=== PATIENT | female | born 1960 | race Caucasian/White ===

== ENCOUNTER 2023-04-27 11:45 | Day surgery (SDC) | payer OTHER, SELFPAY ==
[2023-04-27] MEDS: TETRACAINE 0.5% OPHTH 1 DROP EYE-RIGHT ×2 (11:53→12:00)
[2023-04-27] MEDS: KETOROLAC OPHTH 0.5% 1 DROP EYE-RIGHT ×3 (11:57→12:06)
[2023-04-27] MEDS: SODIUM CHLORIDE 0.9 % (FLUSH) 10 ML SYRINGE IVF (12:15)
[2023-04-27 12:23] VITALS: BP 143/88; PULSE 94; RESP 16; TEMP 36.6; O2SAT 98; BMI 22.4
--- NOTE | 2023-04-27 12:33 | W.ANESCHARGE ---
Anesthesia Charges Start Date/Time Anesthesia Start Date: 04/27/23 Anesthesia Start Time: 12:40 Stop Date/Time Anesthesia Stop Date: 04/27/23 Anesthesia Stop Time: 13:32
[2023-04-27] MEDS: TETRACAINE 0.5% OPHTH 2 DROP EYE-RIGHT (12:44)
[2023-04-27] MEDS: TRYPAN BLUE 0.5 ML SYRINGE EYE-RIGHT (12:49)
[2023-04-27] MEDS: BALANCED SALT IRRIG SOLN 15 ML EYE-RIGHT (12:49)
--- NOTE | 2023-04-27 12:53 | W.ANESCHARGE ---
Anesthesia Charges Start Date/Time Anesthesia Start Date: 04/27/23 Anesthesia Start Time: 12:40 Stop Date/Time Anesthesia Stop Date: 04/27/23 Anesthesia Stop Time: 13:32
[2023-04-27 13:32] VITALS: BP 135/64; PULSE 89; RESP 16; TEMP 36.6; O2SAT 98
--- NOTE | 2023-04-27 13:38 | P.OPTPRC_ITS ---
Procedure Note Date of procedure: 04/27/[address] [facility] bill your pro fee for this procedure?: Yes Procedure Description: SURGEON: Catherine Giraldo MD PREOPERATIVE DIAGNOSIS: 1. Mature cataract, right eye. 2. Miosis, right eye. POSTOPERATIVE DIAGNOSIS: 1. Mature cataract, right eye. 2. Miosis, right eye. NAME OF OPERATION: Phacoemulsification of cataract with posterior chamber intraocular lens implantation in the right eye with pupilloplasty and trypan. ANESTHESIA: Topical. ESTIMATED BLOOD LOSS: Less than 2 cc. COMPLICATIONS: None. PATHOLOGY SPECIMEN: None. INDICATIONS: See consult note for details. The risks, benefits and alternatives of the procedure were explained to the patient, who elected to proceed and signed informed consent to do so. PROCEDURE: The patient was brought to the pre-holding area where the right eye was identified as the operative eye. I placed my initials above this eye. The patient received eye drops consisting of 0.5% tetracaine, 1% tropicamide, 10% phenylephrine, and 0.5% ketorolac. The patient was then brought to the operating room where the right eye was again identified as the operative eye. The eye was prepped with Betadine and draped in the usual sterile ophthalmic fashion. A #15 super-sharp blade was used to create a paracentesis site. 1% non-preserved intracameral lidocaine was injected into the anterior chamber. An air bubble was injected into the anterior chamber. Trypan blue was injected posterior to the air bubble in order to stain the anterior capsule. Balanced salt solution was used to irrigate the anterior chamber. Endocoat was injected into the anterior chamber. A 2.4 mm keratome was used to create a three-plane self-sealing incision 1 mm anterior to the temporal limbus. A #15 super-sharp blade was used to create four additional paracentesis sites. Four Grieshaber iris hooks were placed in order to stretch the iris. A cystotome was used to create an anterior capsular leaflet. The Utrata forceps were used to extend this to form a continuous curvilinear capsulorrhexis. Hydrodissection was performed. The cataract was removed with phacoemulsification using the [id number] technique. The irrigation and aspiration tip was used to remove the remaining cortex. Healon was injected into the capsular bag. An NEENA ZCB00 intraocular lens of 21.5 diopters was injected into the capsular bag. The four Grieshaber iris hooks were removed. The irrigation and aspiration tip was used to remove the remaining viscoelastic. Miostat was injected into the anterior chamber. Balanced salt solution on a cannula was used to hydrate the wound, and the wound was found to be watertight. The pupil was noted to be round. DISPOSITION: The patient was taken to the recovery room and discharged to home in stable condition. The patient was instructed to call me or go to the emergency department with any sudden change, including dramatic loss of vision, severe pain in the eye or eyebrow region, nausea, or vomiting. The patient will follow up in the clinic tomorrow morning.
== END 2023-04-27 13:48 | disposition home or self-care (01) ==
PROVIDERS: PCP Surgery; Visit Provider Ophthalmology
PROC: (CPT 66982; principal; 2023-04-27 12:00)
DX: H25.89 Other age-related cataract (principal); H57.03 Miosis
CPT/HCPCS: 66982; 00142; 82962; A9270; J2250; J2405; J3010; V2632

== ENCOUNTER 2023-05-11 09:40 | Day surgery (SDC) | payer OTHER, SELFPAY ==
[2023-05-11] MEDS: TETRACAINE 0.5% OPHTH 1 DROP EYE-LEFT ×2 (09:45→09:50)
[2023-05-11] MEDS: KETOROLAC OPHTH 0.5% 1 DROP EYE-LEFT ×3 (09:45→09:55)
[2023-05-11 09:57] VITALS: BMI 22.5
[2023-05-11 10:17] VITALS: BP 152/72; PULSE 95; RESP 16; TEMP 36.6; O2SAT 98
[2023-05-11] MEDS: SODIUM CHLORIDE 0.9 % (FLUSH) 10 ML SYRINGE IVF (10:21)
--- NOTE | 2023-05-11 10:25 | SUR.PREOP ---
The eye drops brought by the patient (Ketorolac and Prednisolone) are examined and I have determined they are labeled by the patient's pharmacy for this patient as prescribed by the surgeon. The bottles are intact, recently obtained and appear to be correct.syd
[2023-05-11] MEDS: TETRACAINE 0.5% OPHTH 2 DROP EYE-LEFT (10:35)
[2023-05-11] MEDS: TRYPAN BLUE 0.5 ML SYRINGE EYE-LEFT (10:40)
[2023-05-11] MEDS: BALANCED SALT IRRIG SOLN 15 ML EYE-LEFT (10:40)
[2023-05-11 11:16] VITALS: PULSE 89; RESP 16; TEMP 36.3; O2SAT 97
--- NOTE | 2023-05-11 11:18 | W.ANESCHARGE ---
Anesthesia Charges Start Date/Time Anesthesia Start Date: 05/11/23 Anesthesia Start Time: 10:31 Stop Date/Time Anesthesia Stop Date: 05/11/23 Anesthesia Stop Time: 11:20
--- NOTE | 2023-05-11 11:20 | W.ANESCHARGE ---
Anesthesia Charges Start Date/Time Anesthesia Start Date: 05/11/23 Anesthesia Start Time: 10:31 Stop Date/Time Anesthesia Stop Date: 05/11/23 Anesthesia Stop Time: 11:20
--- NOTE | 2023-05-11 13:15 | W.PM.OPTPROC ---
Procedure Note Date of procedure: 05/11/23 Will [facility] bill your pro fee for this procedure?: Yes Procedure: SURGEON: Catherine Giraldo MD PREOPERATIVE DIAGNOSIS: 1. Mature cataract, left eye. 2. Miosis, left eye. POSTOPERATIVE DIAGNOSIS: 1. Mature cataract, left eye. 2. Miosis, left eye. NAME OF OPERATION: Phacoemulsification of cataract with posterior chamber intraocular lens implantation in the left eye with pupilloplasty and trypan blue. ANESTHESIA: Topical. ESTIMATED BLOOD LOSS: Less than 2 cc. COMPLICATIONS: None. PATHOLOGY SPECIMEN: None. INDICATIONS: See consult note for details. The risks, benefits and alternatives of the procedure were explained to the patient, who elected to proceed and signed informed consent to do so. PROCEDURE: The patient was brought to the pre-holding area where the left eye was identified as the operative eye. I placed my initials above this eye. The patient received eye drops consisting of 0.5% tetracaine, 1% tropicamide, 10% phenylephrine, and 0.5% ketorolac. The patient was then brought to the operating room where the left eye was again identified as the operative eye. The eye was prepped with Betadine and draped in the usual sterile ophthalmic fashion. A #15 super-sharp blade was used to create a paracentesis site. 1% non-preserved intracameral lidocaine was injected into the anterior chamber. An air bubble was injected into the anterior chamber. Trypan was injected posterior to the air bubble in order to stain the anterior capsule. Balanced salt solution was used to irrigate the anterior chamber. Endocoat was injected into the anterior chamber. A 2.4 mm keratome was used to create a three-plane self-sealing incision 1 mm anterior to the temporal limbus. A #15 super-sharp blade was used to create four additional paracentesis sites. Four Grieshaber iris hooks were placed in order to stretch the iris. A cystotome was used to create an anterior capsular leaflet. The Utrata forceps were used to extend this to form a continuous curvilinear capsulorrhexis. Hydrodissection was performed. The cataract was removed with phacoemulsification using the [id number] technique. The irrigation and aspiration tip was used to remove the remaining cortex. Healon was injected into the capsular bag. An NEENA ZCB00 intraocular lens of 21.5 diopters was injected into the capsular bag. The four Grieshaber iris hooks were removed. The irrigation and aspiration tip was used to remove the remaining viscoelastic. Miostat was injected into the anterior chamber. Balanced salt solution on a cannula was used to hydrate the wound, and the wound was found to be watertight. The pupil was noted to be round. DISPOSITION: The patient was taken to the recovery room and discharged to home in stable condition. The patient was instructed to call me or go to the emergency department with any sudden change, including dramatic loss of vision, severe pain in the eye or eyebrow region, nausea, or vomiting. The patient will follow up in the clinic tomorrow morning.
== END 2023-05-11 11:47 | disposition home or self-care (01) ==
PROVIDERS: PCP Surgery; Visit Provider Ophthalmology
PROC: (CPT 66982; principal; 2023-05-11 09:45)
DX: H25.89 Other age-related cataract (principal); H57.03 Miosis
CPT/HCPCS: 66982; 142; 82962; A9270; J2250; J2405; J3010; V2632

== ENCOUNTER 2023-11-24 10:30 | Outpatient (RCR) | payer OTHER, SELFPAY | END 2024-03-23 23:59 | disposition home or self-care (01) | PROVIDERS: PCP Surgery; Visit Provider Surgery | DX: M79.605 Pain in left leg (principal); M54.2 Cervicalgia; G89.29 Other chronic pain; M54.89 Other dorsalgia; M25.572 Pain in left ankle and joints of left foot; M79.672 Pain in left foot; M62.81 Muscle weakness (generalized); R26.2 Difficulty in walking, not elsewhere classified; Z51.89 Encounter for other specified aftercare | CPT/HCPCS: 97110; 97112; 97140; 97163; 97530 ==

== ENCOUNTER 2024-10-26 10:07 | Outpatient (CLI) | payer MEDICARE, BC, SELFPAY | END 2024-10-26 10:08 | disposition home or self-care (01) | LOC: AMB 10-29 09:48 | PROVIDERS: PCP Surgery; Visit Provider Family Medicine | DX: R53.1 Weakness (principal); R42 Dizziness and giddiness | CPT/HCPCS: A0425; A0427 ==

== ENCOUNTER 2024-10-26 11:42 | Emergency (ER) | payer MEDICARE, BC, SELFPAY ==
[2024-10-26 11:53] VITALS: BP 154/72; PULSE 86; RESP 18; TEMP 36.8; O2SAT 99; BMI 23.6
--- NOTE | 2024-10-26 11:54 | ED.GENADULT ---
HPI - General Adult General Chief complaint: Dizziness/Vertigo Stated complaint: dizziness Time Seen by Provider: 10/26/24 11:54 History of Present Illness HPI narrative: Patient reports lightheadedness and dizziness causing her to be unable to care for her special needs son. She was given Zofran and 500NS from EMS and reports nausea has improved. Still feels dizzy especially with side to side head movements. 64-year-old woman presenting to the emergency department with concern of NS. She admits that this has been going on off for years but woke with more intense symptoms this morning. She had fallen asleep in recliner so that she could be more able to hear her special needs son. Having woken earlier initially in the night she had then overslept. She found herself due to the dizziness unable to get out of the chair. Ultimately called for EMS as she could not get up off the floor. She did not fall or hit her head. She describes a sensation of imbalance and kind of a disconnection from reality somehow. Has not noted any fever otherwise or unwell lately. Not complaining of headache. No neck pain. Denies diplopia. Dizziness only associated with movement Treats diabetes with insulin Nicotine dependence Related Data Home Medications ?Medication ?Instructions ?Recorded ?Confirmed atorvastatin 20 mg tablet 20 mg PO QPM 04/26/23 10/26/24 gabapentin 600 mg tablet 600 mg PO BID 04/26/23 10/26/24 insulin glargine 100 unit/mL (3 10 unit subcut QPM 04/26/23 10/26/24 mL) subcutaneous pen (Basaglar KwikPen U-100 Insulin) lisinopril 10 mg tablet 10 mg PO DAILY 04/26/23 10/26/24 metformin 500 mg tablet,extended mg PO 04/26/23 release 24 hr terbinafine HCl 250 mg tablet 250 mg PO DAILY 04/26/23 05/11/23 Previous Rx's ?Medication ?Instructions ?Recorded diazepam 5 mg tablet (Valium) 5 mg PO TID PRN dizziness #6 tabs 10/26/24 meclizine 25 mg tablet 25 mg PO TID PRN dizziness #30 tabs 10/26/24 Allergies Allergy/AdvReac Type Severity Reaction Status Date / Time Penicillins Allergy Hives Verified 05/11/23 07:33 glimepiride AdvReac Vomiting Verified 05/11/23 07:33 Review of Systems Status of ROS: Reports: 6 or more systems reviewed and unremarkable except as noted in History and [facility] Type 2 diabetes mellitus ?E11.9 - Type 2 diabetes mellitus without complications (ICD-10) Social History Smoking Status: Current every day smoker What tobacco products do you use: cigarettes How often do you have a drink containing alcohol: monthly or less Alcohol type: beer How many standard drinks containing alcohol do you have on a typical day: 1 or 2 How often do you have six or more drinks on one occasion: Never AUDIT-C Alcohol total score: 1 Non-prescribed substance use: denies use Caffeine: Yes Are you using contraception or practicing any form of control: No Exam Narrative: Exam Narrative: Pleasant. NAD. Little hard of hearing. Cranial nerves 2-12 intact. Does have little left beating nystagmus more so than the right. Symptoms are significantly exacerbated when rotating head to the left versus the right or going to seated position. Head impulse testing actually had momentary positive with rotation to the right; I would say inconclusive. Going to sit her up however resulted in significant reproduction of symptoms. Heart in regular rate and rhythm. Breathing easily. Lungs are clear. No focal weaknesses and moving all extremities without difficulty. Lower extremities are without edema. She is well-perfused. Const: Vital Signs, click to edit/add: Vital Signs - 24 hr 10/26/24 11:53 Temperature 98.3 F Pulse Rate [Pulse Oximeter] 86 Respiratory Rate 18 Blood Pressure [Ri ght Upper Arm] 154/72 H Pulse Oximetry 99 Oxygen Delivery Me thod Room Air Documenting provider has reviewed patient's vital signs: yes Course Vital Signs Vital signs: Initial Vital Signs Temperature 98.3 F 10/26/24 11:53 Temperature Source Temporal Artery Scan 10/26/24 11:53 Pulse Rate 86 10/26/24 11:53 Respiratory Rate 18 10/26/24 11:53 Blood Pressure 154/72 H 10/26/24 11:53 Blood Pressure Mean 99 10/26/24 11:53 Pulse Oximetry 99 10/26/24 11:53 Oxygen Delivery Method Room Air 10/26/24 11:53 Vital Signs Temperature 98.3 F 10/26/24 11:53 Pulse Rate 86 10/26/24 11:53 Respiratory Rate 18 10/26/24 11:53 Blood Pressure 154/72 H 10/26/24 11:53 Pulse Oximetry 99 10/26/24 11:53 Oxygen Delivery Method Room Air 10/26/24 11:53 Temperature 98.3 F 10/26/24 11:53 Pulse Rate 86 10/26/24 11:53 Respiratory Rate 18 10/26/24 11:53 Blood Pressure 154/72 H 10/26/24 11:53 Pulse Oximetry 99 10/26/24 11:53 Oxygen Delivery Method Room Air 10/26/24 11:53 Medications Administered Medications: Discontinued Medications Generic Name Dose Route Start Last Admin Trade Name Summer PRN Reason Stop Dose Admin Dexamethasone 10 mg 10/26/24 13:48 10/26/24 13:52 Dexamethasone 4 Mg/Ml Vial IVP 10/26/24 13:49 10 mg ONCE ONE Administration Diazepam 3 mg 10/26/24 12:13 10/26/24 12:31 Diazepam 5 Mg/Ml Inj IV 10/26/24 12:14 3 mg ONCE ONE Administration Sodium Chloride 500 mls @ 500 mls/hr 10/26/24 12:13 10/26/24 13:33 0.9 % Sodium Chloride 500 Ml IV 10/26/24 13:12 Infused .Q1H ONE Infusion Meclizine HCl 25 mg 10/26/24 12:14 10/26/24 12:34 Meclizine Hcl 25 Mg Tablet PO 10/26/24 12:15 25 mg ONCE ONE Administration Medical Decision Making [facility] Narrative Medical decision making narrative: IV has already been placed. She is not complaining of significant nausea at this time. Symptoms are overall improved. Do seem isolated to and exacerbated by movement. Concerning that does smoke and more likely to have all sorts of vascular disease. I think more likely to be peripheral than central. Would like to test with a dose of Valium as well. Also give dose of meclizine. Did also discuss this case briefly with on-call Neurology in agreement with plan. On reassessment is feeling markedly improved. A little symptomatic and again remains symptomatic with movement. See patient discharge plan for further discussion Take care in transitions. Stay well-hydrated. I am prescribing the same medicine you received here. These pills of Valium can make you tired but are effective for treating more intense symptoms of dizziness. Use these as needed. Also meclizine. Take this 3 times daily regularly over the next 4 days or so if they do not make you too tired; otherwise can also take them just as needed. Can discuss your symptoms with your physical therapist or also talk with your primary care provider to get appointment with Physical therapy who can help you with these symptoms. I am also including exercises that you can do focused on the left side which is highlighted. For now do not do the right side. If symptoms are becoming persistently present even when you are not moving or uncontrolled, you have new and focal weakness, please be seen/return. Otherwise please do which you can to quit smoking. See information here on [employer] Medical Records Medical records reviewed: Yes I reviewed the patient's medical records Discharge Plan Discharge Clinical Impression: Peripheral positional vertigo Patient Disposition: Home w/ Parent or Adult Condition: Improved Additional Instructions: Take care in transitions. Stay well-hydrated. I am prescribing the same medicine you received here. These pills of Valium can make you tired but are effective for treating more intense symptoms of dizziness. Use these as needed. Also meclizine. Take this 3 times daily regularly over the next 4 days or so if they do not make you too tired; otherwise can also take them just as needed. Can discuss your symptoms with your physical therapist or also talk with your primary care provider to get appointment with Physical therapy who can help you with these symptoms. I am also including exercises that you can do focused on the left side which is highlighted. For now do not do the right side. If symptoms are becoming persistently present even when you are not moving or uncontrolled, you have new and focal weakness, please be seen/return. Otherwise please do which you can to quit smoking. See information here on [employer] Prescriptions: New meclizine 25 mg tablet 25 mg PO TID PRN (Reason: dizziness) Qty: 30 0RF diazepam [Valium] 5 mg tablet 5 mg PO TID PRN (Reason: dizziness) Qty: 6 0RF No Action gabapentin 600 mg tablet 600 mg PO BID atorvastatin 20 mg tablet 20 mg PO QPM terbinafine HCl 250 mg tablet 250 mg PO DAILY lisinopril 10 mg tablet 10 mg PO DAILY metformin 500 mg tablet extended release 24 hr PO insulin glargine [Basaglar KwikPen U-100 Insulin] 100 unit/mL (3 mL) insulin pen 10 unit subcut QPM Follow Up/Referrals: Cesar Li MD [Primary Care Provider] - Stand Alone Forms: [facility] Info Instructions
[2024-10-26] MEDS: 0.9 % SODIUM CHLORIDE 500 ML 500 ML IV (12:25)
[2024-10-26] MEDS: diazePAM 5 MG/ML inj 3 MG IV (12:31)
[2024-10-26] MEDS: MECLIZINE HCL 25 MG TABLET PO (12:34)
[2024-10-26] MEDS: dexAMETHasone 4 MG/ML VIAL 10 MG IVP (13:52)
== END 2024-10-26 14:40 | disposition home or self-care (01) ==
PROVIDERS: Emergency Provider Family Medicine; PCP Surgery
DX: H81.12 Benign paroxysmal vertigo, left ear (principal)
CPT/HCPCS: 96361; 96374; 96375; 99283; 99284; A9270; J1100; J3360; J7030

== ENCOUNTER 2025-03-21 12:30 | Outpatient (RCR) | payer MEDICARE, BC, SELFPAY | END 2025-05-06 09:15 | disposition home or self-care (01) | PROVIDERS: PCP Surgery; Visit Provider Surgery | DX: M25.572 Pain in left ankle and joints of left foot (principal); G89.29 Other chronic pain; M54.2 Cervicalgia; Z51.89 Encounter for other specified aftercare | CPT/HCPCS: 97110; 97140; 97163 ==